=== PATIENT | female | born 1970 | race Caucasian/White ===

== ENCOUNTER 2017-08-24 16:39 | Emergency (ER) | payer OTHER ==
[2017-08-24 17:00] VITALS: BP 155/98
--- NOTE | 2017-08-24 17:04 | UC ---
Skin Complaint HPI - HPI Summary HPI Summary: This is janell Bates documenting for attending Vikash Clark MD. This patient is a 47 year old F presenting to [facility] with a chief complaint of red , circular rash on R forearm that began yesterday. The patient rates the pain 2/ 10 in severity. Symptoms aggravated by nothing. Symptoms alleviated by nothing. Patient reports that she does not know if she had a mosquito bite. She denies tick removal, and has not been outside recently. - History of Current Complaint Time Seen by Provider: 08/24/17 16:44 Stated Complaint: SKIN COMPLAINT Hx Obtained From: Patient Hx Last Menstrual Period: hysterectomy ?: No Onset/Duration: Sudden Onset, Lasting Days, Still Present Skin Exposure Onset/Duration: Days Ago Timing: Constant Onset Severity: Mild Current Severity: Mild Pain Intensity: 2 Pain Scale Used: 0-10 Numeric Location: Other - R forearm Character: Painful Aggravating Factor(s): Nothing Alleviating Factor(s): Nothing - Allergy/Home Medications Allergies/Adverse Reactions: Allergies Allergy/AdvReac Type Severity Reaction Status Date / Time No Known Allergies Allergy Verified 06/02/16 09:25 Home Medications: Home Medications Ibuprofen [Advil] 08/24/17 [History] diphenhydrAMINE HCl [Benadryl Allergy] 08/24/17 [History] Review of Systems Constitutional: Other - Negative fever Skin: Rash All Other Systems Reviewed And Are Negative: Yes PMH/Surg Hx/FS Hx/Imm Hx Previously Healthy: Yes Endocrine History: Other Other Endocrine History: Negative diabetes Cardiovascular History: Other Other Cardiovascular History: Negative HTN - Surgical History Surgical History: Yes Surgery Procedure, Year, and Place: hysterectomy,appendectomy, - Family History Known Family History: Positive: Other - Breast CA - Social History Occupation: Employed Full-time Lives: With Family Alcohol Use: Weekly Alcohol Amount: 3-4 PER WEEK Substance Use Type: None Smoking Status (MU): Never Smoked Tobacco - Immunization History Most Recent Influenza Vaccination: no Most Recent Tetanus Shot: unk Most Recent Pneumonia Vaccination: no Physical Exam - Summary Physical Exam Summary: VITAL SIGNS: Reviewed. GENERAL: Patient is a well-developed and nourished female who is lying comfortable in the stretcher. Patient is not in any acute respiratory distress. HEAD AND FACE: Normocephalic EYES: PERRLA, EOMI x 2. EARS: Hearing grossly intact. MOUTH: Oropharynx within normal limits. NECK: Supple, trachea is midline, no adenopathy, no JVD, no carotid bruit. CHEST: Symmetric, no tenderness at palpation LUNGS: Clear to auscultation bilaterally. No wheezing or crackles. CVS: Regular rate and rhythm, S1 and S2 present, no murmurs or gallops appreciated. ABDOMEN: Soft, non-tender. Bowel sounds are normal. No abdominal abnormal pulsations. EXTREMITIES: Full ROM in all major joints, no edema, no cyanosis or clubbing. NEURO: Alert and oriented x 3. No acute neurological deficits. Speech is normal and follows commands. SKIN: Dry and warm. 3x1 cm rash with erythema Triage Information Reviewed: Yes Vital Signs: Initial Vital Signs Temp 98.2 F 08/24/17 16:53 Pulse 80 08/24/17 16:53 Resp 16 08/24/17 16:53 BP 155/98 08/24/17 16:53 Pulse Ox 100 08/24/17 16:53 Vital Signs Reviewed: Yes Course/Dx - Course Course Of Treatment: Patient is a 47-year-old female who presents to the urgent care with a chief complaint of having a rash in the right forearm. It seems that his of cellulitis. The patient was given Keflex and discharged home with follow-up with primary care physician. Patient was instructed to return to the urgent care or follow up with the primary care physician or emergency department if the symptoms worsen. She understands and agrees. - Diagnoses Provider Diagnoses: Cellulitis Discharge - Sign-Out/Discharge Documenting (check all that apply): Patient Departure - Discharge Plan Condition: Stable Disposition: HOME Prescriptions: Cephalexin CAP* [Keflex CAP*] 500 mg PO QID #40 cap Patient Education Materials: Cellulitis (DC) Referrals: Jessika Santiago MD [Primary Care Provider] - Additional Instructions: Take medications as instructed and adhere to plan Take Acetaminophen or ibuprofen for pain or fever Increase your fluid intake Return to the or go to the emergency department if symptoms worsen Follow-up with primary care physician in next 2-3 days - Billing Disposition and Condition Condition: STABLE Disposition: Home
== END 2017-08-24 17:09 | disposition home or self-care (01) ==
LOC: UCEAST 16:39
DX: L03.113 Cellulitis of right upper limb (principal)
CPT/HCPCS: 99212; G0463